=== PATIENT | male | born 1985 | race Caucasian/White ===

== ENCOUNTER → 2023-08-01 06:26 | Day surgery (SDC) | payer OTHER, SELFPAY | LOC: GI 06:26 | PROVIDERS: ATTENDING PHYSICIAN Specialist | DX: Z12.11 Encounter for screening for malignant neoplasm of colon (principal); D12.2 Benign neoplasm of ascending colon; D12.3 Benign neoplasm of transverse colon; K22.89 Other specified disease of esophagus; K31.7 Polyp of stomach and duodenum; Z86.010 Personal history of colon polyps | CPT/HCPCS: 45385; 43239; 88305 ==

== ENCOUNTER → 2023-09-15 13:49 | Outpatient (REF) | payer OTHER, SELFPAY | LOC: HWRAD 13:49 | PROVIDERS: ATTENDING PHYSICIAN Urology; FAMILY PHYSICIAN Physician Assistant Medical; REFERRING PHYSICIAN Internal Medicine Endocrinology, Diabetes & Metabolism | DX: R31.29 Other microscopic hematuria (principal); E04.2 Nontoxic multinodular goiter | CPT/HCPCS: 76536; 76770 ==

== ENCOUNTER 2024-08-28 06:03 | Day surgery (SDC) | payer OTHER, SELFPAY ==
[2024-08-08 11:30] LABS: Hematocrit 40.8 % (39.0-52.0); Hemoglobin 14.2 g/dL (13.0-18.0); Mean Corp Hgb Conc. 34.8 g/dL (33.0-37.0); Mean Corpuscular Volume 91.7 fL (80.0-94.0); Platelet Count 267 10^3/uL (130-400); Red Cell Dist. Width 13.1 % (11.5-14.5)
[2024-08-08 11:34] LABS: APTT 27.9 Sec (23.4-35.0); INR 0.90; PT 12.6 Sec (11.4-14.6)
[2024-08-08 12:03] LABS: ALT (SGPT) 48 U/L (0-50); AST (SGOT) 32 U/L (17-59); Albumin 4.0 g/dl (3.5-5.0); Alkaline Phosphatase 88 U/L (38-126); Blood Urea Nitrogen 12 mg/dl (9-20); Calcium 9.6 mg/dl (8.4-10.2); Carbon Dioxide 29 mmol/L (22-30); Chloride 106 mmol/L (98-107); Glucose 93 mg/dl (70-99); Potassium 4.4 mmol/L (3.5-5.1); Sodium 140 mmol/L (135-145); Total Protein 6.6 g/dl (6.3-8.2); eGFR > 60.00
[2024-08-08 13:59] VITALS: BMI 31.1
[2024-08-28] VITALS (15 sets, daily range): BP systolic 97–132; BP diastolic 58–86; BMI 31.1
[2024-08-28] MEDS: TYLENOL 1000 MG PO (06:53)
[2024-08-28] MEDS: NEURONTIN 300 MG PO (06:53)
[2024-08-28] MEDS: HEPARIN 5000 UNITS SC (06:53)
[2024-08-28] MEDS: NORMOSOL-R/PLASMALYTE-A 1000 IV (06:54)
--- NOTE | 2024-08-28 09:06 | OR.RPT ---
Operative Report
Operative Report
DATE OF OPERATION: August 28, 2024
PREOPERATIVE DIAGNOSIS: Thyroid Mass Single - E041
POSTOPERATIVE DIAGNOSIS: Same
SURGEON: Elio Ding M.D.
OPERATION: Right Thyroidectomy, Isthmus Resection of Right Limited Neck Dissection - 95002
ANESTHESIA: GET
ESTIMATED BLOOD LOSS: 2 cc
DRAINS: None
SPECIMEN: Right thyroid lobe, isthmus and right level paratracheal tissue
FINDINGS: Right thyroid nodule
COMPLICATIONS: None,
PROCEDURE:
The patient was taken to the operating room and placed in the usual supine position. After adequate general endotracheal anesthesia was established, the patient�s neck was extended, prepped, and draped in the typical sterile fashion. A 4 cm
transcervical incision was made two fingerbreadths above the sternal notch. The skin incision was made with the #15 blade, which was taken through the skin into the subcutaneous tissue. The underlying platysma muscle was divided, and subplatysmal
flaps were created superiorly to the thyroid cartilage and inferiorly to the sternal notch. Strap muscles were identified and at the midline.
Attention was turned to the patient�s right thyroid lobe. The right thyroid lobe was mobilized medially. During this process, the right middle thyroid vein and inferior thyroid artery were dissected and ligated with Ligasure. Next, the right
superior pole was taken down by dissecting and transecting the superior pole vessels with a Ligasure. The right thyroid lobe was mobilized medially. During this process, the right recurrent laryngeal nerve was identified and preserved throughout its
entire course. The right superior and inferior parathyroid glands were identified and preserved. The right thyroid lobe with isthmus was resected off the trachea and sent to the pathology department.
At this time, the left level 6 selective neck dissection was performed. The tissue between the right carotid artery to the trachea in the anterior mediastinum was carefully dissected. The previously identified recurrent laryngeal nerve and
parathyroid glands were preserved. The tissue was removed and sent to the pathology department.
Further examination of the parathyroid glands revealed an ischemic right inferior parathyroid gland. Therefore, this gland was minced and autotransplanted in the right SCM muscle.
After obtaining adequate hemostasis, the strap muscle was approximated with #3-0 Vicryl in a running fashion, and the platysma muscles were reapproximated with #3-0 Vicryl in an interrupted fashion, and the skin was approximated with #4-0 Monocryl
in a running subcuticular fashion. Steri-strips and sterile dressings were placed. The patient tolerated the procedure well. The final instrument, needle, and sponge counts were correct.
[2024-08-28] MEDS: SUBLIMAZE 25 MCG IV (10:05)
[2024-08-28] MEDS: ROXICODONE 5 MG PO ×2 (11:33→14:55)
[2024-08-28] MEDS: TYLENOL 650 MG PO ×4 (11:33→23:27)
[2024-08-28] MEDS: SYMBICORT 160/4.5 MCG INHALER 2 PUFF INH (17:55)
[2024-08-28] MEDS: DILAUDID 0.5 MG IV (18:29)
[2024-08-28] MEDS: SINGULAIR 10 MG PO (21:46)
[2024-08-28] MEDS: FLOMAX 0.4 MG PO (21:46)
[2024-08-29 03:00] VITALS: BP 121/65
[2024-08-29] MEDS: TYLENOL PO (04:27)
[2024-08-29 07:13] VITALS: BP 97/73
[2024-08-29] MEDS: SYMBICORT 160/4.5 MCG INHALER 2 PUFF INH (07:35)
[2024-08-29] MEDS: VITAMIN D3 (cholecalciferol) 25 MCG PO (08:35)
[2024-08-29] MEDS: TYLENOL 650 MG PO ×3 (08:35→16:25)
[2024-08-29] MEDS: TOPROL XL 25 MG PO (08:35)
[2024-08-29] MEDS: PROTONIX 40 MG PO (08:36)
[2024-08-29] MEDS: ROXICODONE 5 MG PO ×2 (08:36→13:54)
[2024-08-29] MEDS: ZYRTEC 10 MG PO (08:37)
--- NOTE | 2024-08-29 09:30 | CM ---
Addendum entered by Markell Szymanski 08/29/24 15:49:
Discharge order noted. Pt is aware. Father at bedside.
D/C plan: home with no needs. parents to transport.
Original Note:
CM following re: discharge planning.
Reviewed pt's chart, met with pt.
Pt is a 38 year old male, admitted with CDS status and primary dx of POD#1 Right Thyroidectomy, Isthmus Resection of Right Limited Neck Dissection.
Pt reports he lives in an in-law suite attached to parent's house, has no children, has a dog, sister lives with parents. Pt described himself as independent in all areas [employer], drives, works. Pt stated his sister and mother are nurses and they will
help with recovery as needed.
PCP: Massiel Means
Pharmacy: [facility]
D/C plan: home with no after care VN needs. Family to transport at discharge.
CM will follow with discharge plan updates as needed.
[2024-08-29 15:04] VITALS: BP 131/65
--- NOTE | 2024-08-29 15:41 | W.DS.TRANS ---
DC Summary - Progressive Care Nurse
-
Discharge Instructions:
Sleep Apnea Risk Low
Discharge Diagnosis/Procedures Thyroidectomy
Diet Regular
Activity No strenuous activity
Driving Restrictions No driving until Tuesday
Bathing Restrictions OK to Shower
Instructions:
Stand-Alone Forms:
Changes to Home Medications: No
Discharge Medications:
DC Medications w/original date entered in [employer]
Acidophilus 1 dose PO DAILY 08/21/24
albuterol sulfate 90 mcg/actuation aerosol inhaler 2 puff inhalation QID PRN wheeze 08/21/24
alfuzosin 10 mg tablet,extended release 24 hr 10 mg PO HS prostate 08/21/24
alprazolam 0.25 mg tablet (Xanax) 0.25 mg PO HS PRN anxiety 08/21/24
budesonide-formoterol HFA 160 mcg-4.5 mcg/actuation aerosol inhaler (Breyna) 2 puff inhalation BID 08/21/24
cetirizine 10 mg tablet (Zyrtec) 10 mg PO DAILY 08/21/24
cholecalciferol (vitamin D3) 25 mcg (1,000 unit) tablet (Vitamin D3) 25 mcg PO DAILY 08/21/24
dupilumab 300 mg/2 mL subcutaneous syringe (Dupixent) 150 mg SC Q2W 08/21/24
metoprolol succinate 25 mg tablet,extended release 24 hr 25 mg PO DAILY 08/21/24
montelukast 10 mg tablet (Singulair) 10 mg PO HS 08/21/24
omeprazole 40 mg capsule,delayed release 40 mg PO DAILY 08/21/24
polyethylene glycol 3350 17 gram/dose oral powder (Miralax) 4 g PO HS 08/21/24
Home Medication Changes
Pending Results: No
== END 2024-08-29 17:00 | disposition home or self-care (01) ==
LOC: SDS 06:03
PROVIDERS: ATTENDING PHYSICIAN Surgery; FAMILY PHYSICIAN Physician Assistant Medical
DX: E04.1 Nontoxic single thyroid nodule (principal)
CPT/HCPCS: 60220; 36415; 80053; 85027; 85610; 85730; 88307; 88311; 93005; 94640; C1776